=== PATIENT | male | born 1975 | race Caucasian/White ===

== ENCOUNTER 2024-12-31 20:38 | Inpatient (IN) | payer OTHER, BC ==
[2024-12-31 21:51] LABS: Absolute Eosinophils 0.2 K/uL (0-0.5); Absolute Monocytes 0.6 K/uL (0.1-1.3); Absolute Neutrophil 5.2 K/uL (1.8-8.0); Basophils % 0.5 % (0-1.3); Eosinophils % 2.4 % (0-4.4); Hematocrit 30.3 % (39.6-49.0); Lymphocytes % 13.7 % (15.3-44.8); MCH 29.4 pg (27.0-35.0); MCHC 33.1 g/dL (32.0-36.0); MCV 88.9 fL (80-100); MPV 8.5 fL (7.6-11.3); Neutrophils % 74.4 % (41.7-73.7); Nucleated Red Blood Cells % 0.1 % (0-0); Platelets 185 thou/uL (152-406); RBC Red Blood Cell Count 3.41 M/uL (4.33-5.43); Red Cell Distribution Width 14.1 % (12.1-15.2)
[2024-12-31 21:55] LABS: Specific Gravity 1.012 (1.005-1.030); Sqamous Epithelial None Seen /HPF (None Seen); Urine Bacteria None Seen /HPF (<20); Urine Bilirubin NEGATIVE (Negative); Urine Blood 2+ (Negative); Urine Clarity Clear (Clear); Urine Color Colorless (Yellow); Urine Culture Reflex Order NOT NEEDED; Urine Glucose TRACE (Negative); Urine Ketones NEGATIVE (Negative); Urine Micro Reflex YN NO BILL MICROSCOPIC; Urine Nitrite NEGATIVE (Negative); Urine Protein 2+ (Negative); Urine RBC <5 /HPF (None Seen); Urine Urobilinogen Normal (Normal); Urine WBC <5 /HPF (<5); Urine pH 7.5 (5.0-7.0)
[2024-12-31 22:03] LABS: Anion Gap 16.4 mEq/L (5.0-15.0); Potassium 5.4 mEq/L (3.5-5.1)
--- NOTE | 2024-12-31 22:03 | RAD REPORT ---
EXAM: CT brain without contrast HISTORY: TRAUMA COMPARISON: None TECHNIQUE: Multiple contiguous axial images were obtained and a CT of the brain without contrast. Sag ittal and coronal reformats were performed. One or more of the following dose reduction techniques were used: Automated exposure control, adjust ment of the mA and/or kV according to patient size, and/or iterative reconstruction. FINDINGS: No evidence of hydrocephalus, intracranial hemorrhage, or extra-axial fluid collection. Mild brain atrophy. No evidence of midline shift or areas of brain edema. The calvarium is intact. The visualized paranasal sinuses and mastoid air cells are essentially clear . IMPRESSION: No evidence of acute intracranial abnormality. EXAM: CT of the cervical spine without contrast HISTORY: Neck pain, injury TRAUMA TECHNIQUE: Multiple contiguous axial images were obtained in a CT of the cervical spine without contr ast. Sagittal and coronal reformats were performed. FINDINGS: The vertebral bodies demonstrate normal height and alignment. No evidence of acute fracture or subluxation.. Mild lower cervical spondylosis. No prevertebral soft tissue swelling is seen. The posterior facets are well aligned. Normal alignment of the skull base with the cervical spine is seen. Bilateral carotid atherosclerosis. The lung apices are unremarkable. IMPRESSION: No evidence of acute osseous abnormality of the cervical spine.
--- NOTE | 2024-12-31 22:06 | RAD REPORT ---
EXAM: CT CHEST, ABDOMEN AND PELVIS WITHOUT CONTRAST CLINICAL INDICATION: TRAUMA TECHNIQUE: CT chest, abdomen and pelvis was performed without contrast, as per department protocol. A xial, sagittal and coronal reconstructions were obtained. One or more of the following dose reduction techniques were used: Automated exposure control, adjustment of the mA and/or kV according to patient size, and/or iterative reconstruction. Unless otherwise specified, incidental findings do not require dedicated imaging follow-up. Examination is limited by the lack of intravenous contrast material. COMPARISON: No prior exam. FINDINGS: LUNGS: No evidence of airspace or interstitial process. No nodules. PLEURA: No pleural effusion. No pneumothorax. MEDIASTINUM AND LYMPH NODES: No mediastinal mass or fluid collection. Normal size mediastinal, hilar, and axillary lymph nodes. OSSEOUS STRUCTURES AND CHEST WALL: Intact. LIVER: Normal in size and contour. No focal lesion or biliary dilatation. Grossly unremarkable gallbl adder. PANCREAS: No mass, ductal dilation, or khoa-pancreatic fluid. SPLEEN: Normal size. No focal lesion. ADRENALS: Normal; no mass. KIDNEYS: Bilateral enlarged polycystic kidneys. URINARY BLADDER: Normal contour. GASTROINTESTINAL TRACT: No bowel obstruction, free air, significant free fluid or abscess. APPENDIX: Normal appendix. LYMPH NODES: No lymphadenopathy. MUSCULOSKELETAL: No acute or suspicious osseous abnormality. OTHER: Large multiloculated fat-containing ventral hernia. Diastases along the anterior abdominal wal l fascia measures 4.7 cm. IMPRESSION: Polycystic kidney disease. Large fat-containing ventral hernia.
--- NOTE | 2024-12-31 23:12 | ER ---
Nurse's Notes [facility] Name: Les Norris Age: 49 yrs Sex: Male : 1975 Arrival Date: 12/31/2024 Time: 20:38 Bed 14 Private MD: Diagnosis: End stage renal disease;Repeated falls;Hyperkalemia;Uremia Presentation: 12/31 20:53 Chief complaint: Patient states: SLEEP WALKING THE PAST 2 WEEKS AND WHEN HE WAKES UP, dd2 HE FALLS. REPORTS THAT THIS OCCURRED 3X TODAY WHILE NAPPING AND HE FELL AND LANDED ON THE RT SHOULDER, HEARD IT POP. Coronavirus screen: At this time, the client does not indicate any symptoms associated with coronavirus-19. Ebola Screen: No symptoms or risks identified at this time. Initial Sepsis Screen: Does the patient meet any 2 criteria? No. Patient's initial sepsis screen is negative. Does the patient have a suspected source of infection? No. Patient's initial sepsis screen is negative. Risk Assessment: Do you want to hurt yourself or someone else? Patient reports no desire to harm self or others. Onset of symptoms is unknown. 20:53 Method Of Arrival: Ambulatory dd2 20:53 Acuity: THU 3 dd2 Triage Assessment: 21:01 General: Appears in no apparent distress. uncomfortable, Behavior is calm, cooperative, dd2 appropriate for age. Pain: Complains of pain in anterior aspect of right shoulder and posterior aspect of right shoulder Pain does not radiate. Pain currently is 7 out of 10 on a pain scale. Musculoskeletal: Circulation, motion, and sensation intact. Range of motion: intact in all extremities, Reports pain in anterior aspect of right shoulder and posterior aspect of right shoulder. Historical: - Allergies: 21:01 No Known Allergies; dd2 - PMHx: 21:01 DIALYSIS; Hypertensive disorder; Kidney disease; RLS; dd2 - PSHx: 21:01 FISTULA LT ARM; dd2 - Immunization history:: Adult Immunizations up to date. - Infectious Disease History:: Denies. - Social history:: Smoking status: Patient denies any tobacco usage or history of. Screenin:30 [facility] ED Fall Risk Assessment (Adult) History of falling in the last 3 months, rg5 including since admission Yes- fall prone (multiple falls) (3 pts) Confusion or Disorientation Yes (5 pts) Intoxicated or Sedated No (0 pts) Impaired Gait Yes (1 pt) Mobility Assist Device Used Yes (1 pt) Altered Elimination No (0 pt) Score/Fall Risk Level 3 or more points = High Risk Oriented to surroundings, Maintained a safe environment, Educated pt \T\ family on fall prevention, incl call for assistance when getting out of bed, Provided non-skid footwear, Hourly rounding (assess needs \T\ fall precautionary measures) done. Abuse screen: Denies threats or abuse. Nutritional screening: No deficits noted. Tuberculosis screening: No symptoms or risk factors identified. Primary Survey: 22:06 NO uncontrolled hemorrhage observed. A: The client is awake and alert. The airway is rg5 patent. Breathing/Chest: Spontaneous respiratory effort, equal unlabored respirations, breath sounds clear bilaterally, regular pattern, symmetrical chest rise and fall. Circulation: No external hemorrhage present. Regular and strong central pulse, skin warm/dry/normal color. Disability Pupils are equal, round, reactive to light and accommodation. Client is alert. Exposure/Environment: All clothing and personal items were removed. Forensic evidence collection is not deemed to be indicated at this time. Items placed in patient belonging bag. There is no evidence of uncontrolled external bleeding. No obvious injuries are noted at this time. Assessment: 21:30 General: Appears in no apparent distress. Behavior is calm, cooperative, appropriate rg5 for age. Pain: Complains of pain in posterior aspect of right shoulder Pain currently is 6 out of 10 on a pain scale. Quality of pain is described as aching, Pain began 4 hours ago. Neuro: Level of Consciousness is awake, alert, obeys commands, Oriented to person, place, time, situation. Cardiovascular: Denies chest pain, Patient's skin is warm and dry. Respiratory: Airway is patent Trachea midline Respiratory effort is even, unlabored. GI: Abdomen is round. : No signs and/or symptoms were reported regarding the genitourinary system. EENT: No signs and/or symptoms were reported regarding the EENT system. Derm: Skin is intact, Skin is dry, Skin is normal, Skin temperature is warm. Musculoskeletal: Circulation, motion, and sensation intact. Range of motion: intact in right shoulder. Vital Signs: 20:53 BP 170 / 92; Pulse 78; Resp 16; Temp 98.2(O); Pulse Ox 97% on R/A; Weight 158.76 kg dd2 (R); Height 6 ft. 5 in. ; Pain 7/10; 22:20 BP 156 / 94; Pulse 79; Resp 18; Temp 98; rg5 23:40 BP 147 / 88; Pulse 80; Resp 18; Pulse Ox 97% on R/A; Pain 0/10; rg5 20:53 Body Mass Index 41.50 (158.76 kg, 195.58 cm) dd2 20:53 Pain Scale: Adult dd2 23:40 Pain Scale: Adult rg5 [place]rien Coma Score: 21:10 Eye Response: spontaneous(4). Motor Response: obeys commands(6). Verbal Response: rg5 oriented(5). Total: 15. Trauma Score (Adult): 21:10 Eye Response: spontaneous(1); Verbal Response: oriented(1); Motor Response: obeys rg5 commands(2); Systolic BP: > 89 mm Hg(4); Respiratory Rate: 10 to 29 per min(4); [place] Score: 15; Trauma Score: 12 ED Course: 20:42 Patient arrived in ED. im 20:53 Maribeth Leal PA-C is PHCP. sb4 20:53 Ryan Salinas MD is Attending Physician. sb4 21:01 Triage completed. dd2 21:01 Arm band placed on left wrist. dd2 21:04 Constantine Xiao, RN is Primary Nurse. rg5 21:10 Patient maintains SpO2 saturation greater than 95% on room air. rg5 21:30 Patient has correct armband on for positive identification. Placed in gown. Bed in low rg5 position. Call light in reach. Side rails up X 1. Door closed. Noise minimized. Warm blanket given. 21:30 No provider procedures requiring assistance completed. Inserted saline lock: 20 gauge rg5 in right wrist, using aseptic technique. Blood collected. Flushed with 10 mL NS. 21:54 CT Head C Spine In Process Unspecified. EDMS 21:54 CT Chest Abdomen Pelvis W/O Contrast In Process Unspecified. EDMS 22:07 Thermoregulation: warm blanket given to patient. rg5 22:51 Shoulder Right (2 View) XRAY In Process Unspecified. EDMS 23:10 Zenon Colbert MD is Hospitalizing Provider. sb4 23:48 EKG done, by ED staff, reviewed by Maribeth Leal PA-C. oe 01/01 00:38 Provided Education on: needs for admit. rg5 00:38 Patient admitted, IV remains in place. intact, No redness/swelling at site. rg5 Administered Medications: 12/31 23:36 Drug: Kayexalate PO 30 grams PO once Route: PO; rg5 23:48 Follow up: Response: No adverse reaction rg5 Medication: 21:30 VIS not applicable for this client. rg5 Intake: 21:10 PO: 0ml; Total: 0ml. rg5 Output: 21:10 Urine: 150ml (Voided); Total: 150ml. rg5 Outcome: 23:11 Decision to Hospitalize by Provider. sb4 01/01 00:37 Admitted to Med/surg accompanied by tech, via wheelchair, rg5 Condition: stable Instructed on the need for admit, 00:42 Patient left the ED. rg5 Signatures: Dispatcher [employer] EDMS Yobani Canales Sophia, PA-C PA-C sb4 Maria Del Rosario Mcfadden Rommel, RN RN rg5 JOHN MADDEN RN RN dd2 Corrections: (The following items were deleted from the chart) 12/31 21:02 21:01 PSHx: None; dd2 dd2
--- NOTE | 2024-12-31 23:12 | EDPHYS ---
Physician Documentation [facility] Name: Les Norris Age: 49 yrs Sex: Male : 1975 Arrival Date: 12/31/2024 Time: 20:38 Bed 14 Private MD: ED Physician Ryan Salinas HPI: 12/31 22:15 This 49 yrs old Male presents to ER via Ambulatory with complaints of Sleep Walking, sb4 Fall Injury. 22:18 Patient with history of ESRD presents today after several falls while sleepwalking. sb4 Patient states that they moved here from [place] about 1 month ago and he has not been sleeping well since, but has been worse the past 2 nights. States that he has woken up while falling down and injured himself in several different places. States that he is working with a performance improvement specialist in [place] and has had sporadic chair times for dialysis but nothing consistent. States that he has not been dialyzed now and 4 days. Denies any current chest pain or shortness of breath. Is currently complaining of pain in his right shoulder. Historical: - Allergies: 21:01 No Known Allergies; dd2 - PMHx: 21:01 DIALYSIS; Hypertensive disorder; Kidney disease; RLS; dd2 - PSHx: 21:01 FISTULA LT ARM; dd2 - Immunization history:: Adult Immunizations up to date. - Infectious Disease History:: Denies. - Social history:: Smoking status: Patient denies any tobacco usage or history of. ROS: 22:18 Constitutional: Negative for fever, chills, and weight loss, sb4 22:18 MS/extremity: Positive for injury or acute deformity, pain, of the anterior aspect of right shoulder, 22:18 All other systems are negative, Exam: 22:18 Head/Face: Normocephalic, atraumatic. Eyes: Extra-ocular motions intact. Periorbital sb4 areas with no swelling, redness, or edema. ENT: Mucous membranes moist. Cardiovascular: Regular rate and rhythm with a normal S1 and S2. Respiratory: No increased work of breathing, no retractions or nasal flaring. Skin: Warm, dry with normal turgor. Normal color with no rashes, no lesions, and no evidence of cellulitis. 22:18 Constitutional: The patient appears in no acute distress, alert, awake, obese, 22:18 Musculoskeletal/extremity: Joints: the right shoulder displays limited range of motion, pain at rest, painful range of motion, Vital Signs: 20:53 BP 170 / 92; Pulse 78; Resp 16; Temp 98.2(O); Pulse Ox 97% on R/A; Weight 158.76 kg dd2 (R); Height 6 ft. 5 in. ; Pain 7/10; 22:20 BP 156 / 94; Pulse 79; Resp 18; Temp 98; rg5 23:40 BP 147 / 88; Pulse 80; Resp 18; Pulse Ox 97% on R/A; Pain 0/10; rg5 20:53 Body Mass Index 41.50 (158.76 kg, 195.58 cm) dd2 20:53 Pain Scale: Adult dd2 23:40 Pain Scale: Adult rg5 [place] Coma Score: 21:10 Eye Response: spontaneous(4). Motor Response: obeys commands(6). Verbal Response: rg5 oriented(5). Total: 15. Trauma Score (Adult): 21:10 Eye Response: spontaneous(1); Verbal Response: oriented(1); Motor Response: obeys rg5 commands(2); Systolic BP: > 89 mm Hg(4); Respiratory Rate: 10 to 29 per min(4); Brien Score: 15; Trauma Score: 12 MDM: 20:54 Medical Screening Exam initiated sb4 23:10 Data reviewed: vital signs, nurses notes, lab test result(s), EKG, radiologic studies, sb4 I have discussed the patient's presentation/case with the attending Emergency Department Physician; and as a result, I will admit patient. Consideration of Admission/Observation Patient was admitted/placed on observation. Counseling: I had a detailed discussion with the patient and/or guardian regarding the historical points, exam findings, and any diagnostic results supporting the discharge/admit diagnosis, the presence of at least one elevated blood pressure reading (>120/80) during this emergency department visit, lab results, radiology results, the need for further work-up and treatment in the hospital. 12/31 21:30 Order name: CBC with Diff; Complete Time: 21:59 sb4 12/31 21:30 Order name: BMP; Complete Time: 22:03 sb4 12/31 21:30 Order name: UAM; Complete Time: 21:59 sb4 12/31 22:57 Order name: Troponin High Sensitivity sb4 12/31 23:53 Order name: Urinalysis w/ reflexes EDMS 12/31 23:53 Order name: CBC with Automated Diff EDMS 12/31 23:53 Order name: CBC with Automated Diff EDMS 12/31 23:53 Order name: Comprehensive Metabolic Panel EDMS 12/31 23:53 Order name: Comprehensive Metabolic Panel EDMS 12/31 21:30 Order name: CT Head C Spine; Complete Time: 22:04 sb4 12/31 21:30 Order name: CT Chest Abdomen Pelvis W/O Contrast; Complete Time: 22:07 sb4 12/31 22:15 Order name: Shoulder Right (2 View) XRAY sb4 12/31 22:57 Order name: EKG; Complete Time: 22:58 sb4 12/31 21:30 Order name: IV Start; Complete Time: 21:40 sb4 12/31 22:57 Order name: EKG - Nurse/Tech; Complete Time: 23:28 sb4 EC:46 Rate is 84 beats/min. Rhythm is regular, Normal Sinus Rhythm. [place] interval is normal at sb4 180 msec. QRS interval is normal at 112 msec. QT interval is normal at 378 msec. No Q waves. T waves are Normal. No ST changes noted. Clinical impression: Normal ECG. Interpreted by me. Reviewed by me. Administered Medications: 23:36 Drug: Kayexalate PO 30 grams PO once Route: PO; rg5 23:48 Follow up: Response: No adverse reaction rg5 Disposition: 01/01 01:30 Co-signature as Attending Physician, Ryan Salinas MD I agree with the assessment sp4 and plan of care. I reviewed the patient's care provided by the Advanced Practice Provider and agree with the diagnosis and treatment plan. Disposition Summary: 12/31/24 23:11 Hospitalization Ordered Notes: Hospitalization Status: Inpatient Admission sb4 Provider: Zenon Colbert sbJessica Condition: Fair sb4 Problem: new sb4 Symptoms: are unchanged sb4 Bed/Room Type: Standard sb4 Location: Telemetry/MedSurg (Inpatient)(01/01/25 00:06) vk Room Assignment: 415(01/01/25 00:06) vk Diagnosis - End stage renal disease sb4 - Repeated falls sb4 - Hyperkalemia sb4 - Uremia sb4 Forms: - Medication Reconciliation Form sb4 - SBAR form sb4 - Leadership Thank You Letter sb4 Signatures: Dispatcher [employer] EDMaribeth Argueta PA-C PA-C sb4 Ryan Salinas MD MD sp4 Tracie Espinal Rommel RN RN rg5 JOHN MADDEN RN RN dd2 Corrections: (The following items were deleted from the chart) 12/31 21:02 21:01 PSHx: None; dd2 dd2 21:30 21:30 CBC+H.LAB.BRZ ordered. EDMS EDMS 21:30 21:30 BASIC METABOLIC PANEL+C.LAB.BRZ ordered. EDMS EDMS 21:30 21:30 Urinalysis W/Microscopic+U.LAB.BRZ ordered. EDMS EDMS 23:38 23:11 Telemetry/MedSurg (Inpatient) sb4 vk 23:38 23:11 sb4 vk 01/01 00:06 12/31 23:38 BR ER HOLD vk vk 01/01 00:06 12/31 23:38 ERHOLD- vk vk
[2024-12-31] MEDS ORDERED: SOD POLYSTYREN SUL 15 GM/60 ML UCUP ONE (23:27)
[2024-12-31] MEDS ORDERED: ONDANSETRON 4 MG/2 ML VIAL IV PRN (23:49)
[2024-12-31] MEDS ORDERED: ACETAMINOPHEN 325 MG TABLET PO PRN (23:49)
--- NOTE | 2024-12-31 23:49 | P.HP ---
Certification for Inpatient Patient admitted to: Inpatient With expected LOS: >2 Midnights Practitioner: I am a practitioner with admitting privileges, knowledge of patient current condition, hospital course, and medical plan of care. Services: Services provided to patient in accordance with Admission requirements found in Title 42 Section 412.3 of the Code of Federal Regulations Patient History Date of Service: 01/01/25 Reason for admission: Hyperkalemia History of Present Illness: 49 yrs old Male with past medical history of hypertension, hyperlipidemia, ESRD on dialysis, and history of restless leg syndrome and history of sleep walking who was brought to ER with a fall. He also has insomnia. Has not been sleeping well for the last few days and had multiple falls. Last dialysis was 4 days ago. Fever or chills. Denies any chest pain or shortness of breath. No nausea vomiting diarrhea also complaining of some right shoulder pain. Patient was assessed in the ER was admitted for further management of hyperkalemia Allergies No Known Allergies Allergy (Unverified 12/31/24 23:55) Home medications list reviewed: Yes - Past Medical/Surgical History Past Medical History: Reviewed- Non-Contributory -: ESRD on dialysis -: Hypertension -: Restless leg syndrome Past Surgical History: Reviewed- Non-Contributory - Family History Family History: Reviewed- Non-Contributory - Social History Smoking Status: Never smoker Review of Systems 10-point ROS is otherwise unremarkable Physical Examination - Vital Signs Temperature: 98.2 F Blood Pressure: 170/92 Pulse: 78 Respirations: 18 Pulse Ox (%): 94 - Physical Exam General: Alert, In no apparent distress, Oriented x3 HEENT: Atraumatic, Normocephalic Neck: Supple Respiratory: Clear to auscultation bilaterally, Normal air movement Cardiovascular: No edema, Regular rate/rhythm, Normal S1 S2 Capillary refill: <2 Seconds Gastrointestinal: Soft and benign, W/out hepatosplenomegaly Musculoskeletal: No clubbing, No swelling Integumentary: No rashes, No tenderness/swelling Neurological: Normal gait, Normal speech, Normal strength at 5/5 x4 extr, Cranial nerves 3-12 intact Lymphatics: No axilla or inguinal lymphadenopathy - Studies Laboratory Data (last 24 hrs) 12/31/24 12/31/24 21:37 21:37 WBC 7.00 Hgb 10.0 L Hct 30.3 L Plt Count 185 Sodium 137 Potassium 5.4 H BUN 107 H Creatinine 11.30 H Glucose 107 H Assessment and Plan - Plan Hyperkalemia ESRD on dialysis Missed dialysis Antihyperkalemic measures Monitor renal parameters Electrolytes monitor and replace accordingly Nephrology consulted Accelerated hypertension Antihypertensives titrated Continue home medications and titrate as needed Hydralazine as needed Fall Shoulder pain Pain control X-ray noted Restless leg syndrome Insomnia Will give a dose of ambien Will start on pramiprexole in a small dose Anemia of chronic disease Monitor H&H closely No overt bleeding at this time GI/DVT prophylaxis Advanced directive full code Discharge Plan: Home Plan to discharge in: 48 Hours - Advance Directives Does patient have a Living Will: No Does patient have a Durable POA for Healthcare: No - Code Status/Comfort Care Code Status: Full Code Time Spent Managing Pts Care (In Minutes): 49
[2024-12-31] MEDS: SODIUM ZIRCONIUM CYCLOSILICATE 10 GM/PKT PO ONE (23:52)
[2025-01-01] MEDS: ZOLPIDEM TARTRATE 5 MG TABLET PO PRN (01:26)
[2025-01-01] MEDS: MORPHINE 2 MG/ML SYR IV PRN (01:26)
[2025-01-01 01:55] VITALS: BMI 41.5
[2025-01-01] MEDS: HYDRALAZINE HCL 20 MG/ML VIAL IV PRN (04:18)
[2025-01-01] MEDS: HYDROCODONE/APAP 5/325 MG TAB PO PRN (04:18)
--- NOTE | 2025-01-01 05:51 | RAD REPORT ---
CLINICAL HISTORY: Pain. COMPARISON: None. TECHNIQUE: XR SHOULDER 2 OR MORE VIEWS RIGHT 12/31/2024 10:15 PM CDT FINDINGS: There is no fracture. There is widening of the right acromioclavicular joint with separation of 1.4 c m. Soft tissues are unremarkable. IMPRESSION: Right AC joint separation. Electronically signed by: Dustin Brito MD 12/31/2024 11:15 PM CDT RP Due to temporary technical issues with the PACS/[employer] reporting system, reports are being nathan d by the in-house radiologist without review as a courtesy to ensure prompt reporting the interpreting radiologist is fully responsible for the content of the report. Transcribed Date/Time: 01/01/2025 5:51 AM
[2025-01-01 06:36] LABS: Absolute Eosinophils 0.1 K/uL (0-0.5); Absolute Lymphocytes (CBC) 1.4 K/uL (0.7-4.9); Absolute Monocytes 0.7 K/uL (0.1-1.3); Absolute Neutrophil 3.9 K/uL (1.8-8.0); Basophils % 0.3 % (0-1.3); Eosinophils % 2.3 % (0-4.4); Hematocrit 29.2 % (39.6-49.0); Hemoglobin 9.6 g/dL (13.6-17.9); Lymphocytes % 22.6 % (15.3-44.8); MCH 29.2 pg (27.0-35.0); MCV 88.6 fL (80-100); MPV 8.9 fL (7.6-11.3); Monocytes % 11.7 % (3.3-12.3); Neutrophils % 63.1 % (41.7-73.7); Nucleated Red Blood Cells % 0.1 % (0-0); Platelets 161 thou/uL (152-406); RBC Red Blood Cell Count 3.29 M/uL (4.33-5.43)
[2025-01-01 06:59] LABS: Albumin 3.3 g/dL (3.4-5.0); Anion Gap 17.2 mEq/L (5.0-15.0); Bilirubin Total 0.3 mg/dL (0.2-1.0); Globulin 3.3 g/dL (2.3-3.5); Potassium 4.2 mEq/L (3.5-5.1); Protein, Total 6.6 g/dL (6.4-8.2)
[2025-01-01] MEDS: HEPARIN 5000 UNIT/ML 1 ML VIAL SQ SCH (08:49)
[2025-01-01] MEDS ORDERED: HYDRALAZINE HCL 20 MG/ML VIAL IV PRN (10:05)
[2025-01-01] MEDS: HYDRALAZINE HCL 20 MG/ML VIAL IV ONE (10:24)
--- NOTE | 2025-01-01 13:27 | P.PN ---
Date of Service: 01/01/25 Subjective: No acute events overnight Plan for HD/nephrology eval ROS: 10 point ROS as noted above, otherwise negative Physical exam GEN: Alert, oriented, NAD HEENT: Normal conjunctiva, sclera anicteric CV: Regular rate and rhythm, no edema Pulm: Nonlabored respirations on room air ABD: Soft, nontender, nondistended MSK: No joint tenderness Integumentary: No rashes Neuro: Normal speech, normal affect Vitals reviewed Assessment: ESRD on HD with noncompliance/hyperkalemia Multiple falls, right shoulder injury Hypertension Hyperlipidemia Insomnia, restless leg syndrome, sleepwalking Plan: ESRD on HD with noncompliance/hyperkalemia Nephrology consulted From out of town, does not have local Hg set up outpatient yet Potassium improved this morning Multiple falls, right shoulder injury As needed pain medications Follow-up with Ortho outpatient Hypertension Hyperlipidemia Insomnia, restless leg syndrome, sleepwalking Continue home medications CPAP at night DVT PPX: Heparin subcu Code status: Nuclear Medicine Chief Technologist Spent Managing Pts Care (In Minutes): 35
[2025-01-01] MEDS: MIDODRINE HCL 5 MG TABLET PO SCH (13:28)
--- NOTE | 2025-01-01 15:14 | CON ---
Date of Consultation: 01/01/2025 Reason For Consultation: Elevated BUN and creatinine, end-stage renal disease, dialysis dependent. History Of Present Illness: This is a 49-year-old gentleman with significant past medical history of polycystic kidney disease, was progressed to end-stage renal disease, started on peritoneal dialysis back in April 2023, complicated with peritonitis. Had to remove the catheter and the patient was started on [facility] and switched to in-center. The patient apparently moved from [place] to the local area. The patient's last dialysis received Tuesday. The patient denied any nausea, any vomiting. The patient came with shortness of breath. Past Medical History: Includes: 1. End-stage renal disease, used to be on peritoneal dialysis switched to home self-care, then to in-center. 2. Polycystic kidney disease. 3. Hypertension. 4. Obstructive sleep apnea. Past Surgical History: Includes: 1. PD catheter placement and removal. 2. AV fistula creation on the left upper arm. Family History: Positive for hypertension. Social History: Denied smoking. Denied drinking. Denied drugs abuse. Review of Systems: Head and Neck: No red eye. No ear pain. GI: No nausea. No vomiting. : No polyuria. No dysuria. No hematuria. REHANGER: No vaginal discharge. Respiratory: No shortness of breath. Cardiovascular: No chest pain. Endocrine: No polydipsia. Skin: No rash. Physical Examination: Vital Signs: When I saw the patient, blood pressure 161/82, pulse of 89, afebrile. Chest: Crackles, bilateral base. Heart: S1, S2. Systolic murmur. Abdomen: Soft, nontender. Extremities: Trace edema. Neurologic: Alert. No focality. Vascular: Has left arm upper AV fistula, good thrill and bruit. No carotid bruit. Laboratory Data: WBC 6.1, hemoglobin 9.6, sodium 139, potassium 4.2, bicarb 19, BUN 105, creatinine 11.3, GFR of 50. Calcium 8.9. Urinalysis negative for infection. Assessment And Plan: 1. End-stage renal disease, dialysis dependent. I am going to go ahead and resume dialysis given the missed dialysis, multiple days and severe elevation in BUN. We will do short session today. Then, we will do another session tomorrow, then we will convert the patient hopefully to 3 times a week and we will follow up. I discussed with the patient modality option. The patient in preference of home hemodialysis. We will arrange for referral for home hemodialysis with staff assisted and we will follow up. 2. Hypertension. We will utilize the blood pressure for more ultrafiltration. 3. Hyperkalemia, stable, resolved. We will dialyze the patient on low potassium bath. 4. Congestive heart failure with exacerbation. We will optimize the fluid status for the patient with the dialysis. 5. Acidosis. Will be corrected with the dialysis. 6. Secondary hyperparathyroidism. We will send for PTH. Thank you, Dr. Colbert, for allowing us to participate in the care of your patient. time spent examining the patient [id number] reviewing data lab and the radiology placing order discussing the case with the patient discussing the case with the front desk team member including hospitalist and nursing staff more than 75-minute MIKE Voice ID: [id number] Report ID: [id number] SCOTT
[2025-01-01 16:52] LABS: Hepatitis B Core Ab, Total Nonreactive (Nonreactive); Hepatitis B surface AG Interp. Nonreactive (Nonreactive); Hepatitis C Virus Ab Nonreactive (Nonreactive)
[2025-01-01 16:53] LABS: HBsAG Nonreactive Report Report
[2025-01-01] MEDS: GABAPENTIN 400 MG CAP PO SCH (17:00)
[2025-01-01] MEDS: EPOETIN ALFA 10,000 UNIT/ML VIAL IV SCH (17:21)
[2025-01-02 06:23] LABS: Percent Reticulocyte Count 0.93 % (0.4-2.05); RBC Red Blood Cell Count 3.52 M/uL (4.33-5.43)
[2025-01-02 06:57] LABS: Albumin 3.2 g/dL (3.4-5.0); Anion Gap 14.7 mEq/L (5.0-15.0); Ferritin 670.4 ng/mL (26-388); Phosphorus 7.7 mg/dL (2.5-4.9); Potassium 3.7 mEq/L (3.5-5.1); Thyroid Stimulating Hormone 2.04 uIU/mL (0.358-3.740)
[2025-01-02 08:05] VITALS: TEMP 98
[2025-01-02] MEDS: ATORVASTATIN 20 MG TAB PO SCH (08:45)
[2025-01-02] MEDS: FUROSEMIDE 40 MG TABLET PO SCH (08:46)
[2025-01-02] MEDS: CALCITROL 0.25 MCG CAP PO SCH (08:46)
[2025-01-02] MEDS: lisinopriL 5 MG TAB PO SCH (08:46)
[2025-01-02] MEDS: allopurinoL 100 MG TAB PO SCH (08:46)
[2025-01-02 08:48] VITALS: BP 169/95
[2025-01-02] MEDS ORDERED: HOME MED 1 EA UNK (Calcitriol [Rocaltrol] 0.5 MCG Capsule) PO SCH (09:00)
[2025-01-02 09:05] VITALS: O2SAT 96
[2025-01-02] MEDS: SEVELAMER CARBONATE 800 MG TABLET PO SCH (12:00)
--- NOTE | 2025-01-02 12:04 | PN ---
Date of Progress Note: 01/02/2025 Subjective: The patient was admitted to the hospital as he missed his dialysis. The patient had moved to [place]. Physical Examination: Vital Signs: Blood pressure 169/95, pulse of 70. Chest: Clear to auscultation. Heart: S1, S2. Regular. Abdomen: Soft, nontender. Extremities: No edema. Neurologic: Alert. No focality. Laboratory Data: Hemoglobin 9.6. Sodium 141, potassium 3.7, bicarb 24, BUN 70, creatinine 9.4. Calcium 9.1, phosphorus 7.7. Ferritin 670. PTH 1200. Current Medications: The patient is on include Epogen, heparin, hydralazine, lisinopril 5 daily, morphine, allopurinol, Lasix, Ambien, gabapentin. Assessment And Plan: 1. End-stage renal disease secondary to polycystic kidney disease. Missed dialysis. Dialyzed yesterday and today, tolerating very well. Discussed with the patient regarding option of treatment. The patient is interested in home dialysis, but apparently his insurance does not cover. The patient would like to continue to be dialyzed at [facility]. We will follow up with the patient. The patient cleared from the renal standpoint for discharge planning. 2. Anemia of chronic kidney disease. Continue ANGELA. 3. Secondary hyperparathyroidism. We will start Renvela and Sensipar. 4. Polycystic kidney disease, stable. The patient was cleared from the renal standpoint for discharge planning. Time spent exam the patient [id number] reviewing the data lab and the radiology placing order discuss the case with the patient discussing the case with the cps team lead including nursing and hospitalist more than 55 minutes MIKE Voice ID: [id number] Report ID: [id number] MTDD
[2025-01-02 13:08] LABS: Hepatitis B Surface Ab - Quant 183.43 mIU/mL (<8.0)
[2025-01-02 13:21] LABS: Rheumatoid Factor NEG (NEG)
--- NOTE | 2025-01-02 14:49 | P.DS ---
Admission Date: 12/31/24 Discharge Date: 01/02/25 Disposition: ROUTINE DISCHARGE Discharge Condition: GOOD Reason for Admission: Hyperkalemia Brief History of Present Illness: 49 yrs old Male with past medical history of hypertension, hyperlipidemia, ESRD on dialysis, and history of restless leg syndrome and history of sleep walking who was brought to ER with a fall. He also has insomnia. Has not been sleeping well for the last few days and had multiple falls. Last dialysis was 4 days ago. Fever or chills. Denies any chest pain or shortness of breath. No nausea vomiting diarrhea also complaining of some right shoulder pain. Patient was assessed in the ER was admitted for further management of hyperkalemia Hospital Course: Assessment: ESRD on HD with noncompliance/hyperkalemia Multiple falls, right shoulder injury Hypertension Hyperlipidemia Insomnia, restless leg syndrome, sleepwalking Patient was admitted to the hospital after sustaining a fall, he ended up having hyperkalemia and had not gotten his dialysis recently as he has been here from out of town. He received acute inpatient HD 2 times and is working on setting up an outpatient chair in [place] with his previous company. On his imaging he was noted to have an AC joint separation, he will be prescribed as needed pain medication and instructed to follow-up with orthopedics. Recommend no heavy lifting with the affected arm until evaluated by orthopedics. Continue other home medications as previously prescribed Vital Signs/Physical Exam: Temp Pulse Resp BP Pulse Ox 98 F 70 16 169/95 H 100 01/02/25 08:00 01/02/25 08:46 01/02/25 08:00 01/02/25 08:46 01/02/25 08:00 General: Alert, In no apparent distress, Oriented x3 HEENT: Atraumatic, PERRLA, EOMI Neck: Supple, JVD not distended Respiratory: Clear to auscultation bilaterally, Normal air movement Cardiovascular: Regular rate/rhythm, Normal S1 S2 Gastrointestinal: Normal bowel sounds, No tenderness Musculoskeletal: No tenderness Integumentary: No rashes Neurological: Normal speech, Normal affect Laboratory Data at Discharge: WBC 6.10 thou/uL (4.3-10.9) 01/01/25 05:39 Hgb 9.6 g/dL (13.6-17.9) L 01/01/25 05:39 Hct 29.2 % (39.6-49.0) L 01/01/25 05:39 Plt Count 161 thou/uL (152-406) 01/01/25 05:39 Sodium 141 mEq/L (136-145) 01/02/25 05:41 Potassium 3.7 mEq/L (3.5-5.1) 01/02/25 05:41 BUN 70 mg/dL (7-18) H 01/02/25 05:41 Creatinine 9.46 mg/dL (0.70-1.30) H 01/02/25 05:41 Glucose 106 mg/dL (74-106) 01/02/25 05:41 Phosphorus 7.7 mg/dL (2.5-4.9) H 01/02/25 05:41 Total Bilirubin 0.3 mg/dL (0.2-1.0) 01/01/25 05:39 AST 26 U/L (15-37) 01/01/25 05:39 ALT 31 U/L (16-61) 01/01/25 05:39 Alkaline Phosphatase 78 U/L (45-117) 01/01/25 05:39 Home Medications: Allopurinol 100 mg PO DAILY 01/01/25 Atorvastatin Calcium 20 mg PO DAILY 01/01/25 Calcitriol [Rocaltrol] 0.5 mcg PO DAILY 01/01/25 Furosemide [Lasix] 40 mg PO DAILY 01/01/25 Gabapentin 400 mg PO QID 01/01/25 Midodrine HCl 5 mg PO TID 01/01/25 Pramipexole Di-HCl [Mirapex ER] 5 mg PO BEDTIME 01/01/25 Semaglutide [Ozempic] 0.25 mg SQ Q7D 01/01/25 lisinopriL [Lisinopril] 5 mg PO DAILY 01/01/25 traMADol HCL [Ultram*] 50 mg PO Q8H PRN #15 tab 01/02/25 New Medications: traMADol HCL [Ultram*] 50 mg PO Q8H PRN #15 tab PRN Reason: Pain Physician Discharge Instructions: Patient was admitted to the hospital after sustaining a fall, he ended up having hyperkalemia and had not gotten his dialysis recently as he has been here from out of town. He received acute inpatient HD 2 times and is working on setting up an outpatient chair in [place] with his previous company. On his imaging he was noted to have an AC joint separation, he will be prescribed as needed pain medication and instructed to follow-up with orthopedics. Recommend no heavy lifting with the affected arm until evaluated by orthopedics. Continue other home medications as previously prescribed Diet: Renal Activity: Ad xiomara Followup: Jessee Espinal MD [ACTIVE - CAN ADMIT] - 1 Week NONE,NONE [Primary Care Provider] - 1-2 Weeks Jason Barry MD [ACTIVE - CAN ADMIT] - 1-2 Weeks Time spent managing pt's care (in minutes): 46
--- NOTE | 2025-01-03 08:46 | EKG ---
Test Date: 2024-12-31 Test Time: 23:43:18 Circular Saw Filer: POLLY MEASUREMENT RESULTS: Intervals: Rate: 84 [place]: 180 QRSD: 112 QT: 378 QTc: 446 [place]: P: 54 [place]: 180 QRS: 53 T: 52 INTERPRETIVE STATEMENTS: Normal sinus rhythm Normal ECG No previous ECG available for comparison Electronically Signed On 01-03-25 08:39:06 CDT by Hardy Solano
[2025-01-03] MEDS ORDERED: lisinopriL 20 MG TAB PO SCH (09:00)
[2025-01-03] MEDS ORDERED: CINACALCET HCL 30 MG TAB PO SCH (09:00)
[2025-01-06 06:07] LABS: Abnormal Protein Band 1 REPORT; Albumin, (SPE) 3.7 g/dL (3.8-4.8); Alpha-1-Globulins 0.3 g/dL (0.2-0.3); Alpha-2-Globulins 0.8 g/dL (0.5-0.9); Beta 1 Globulin 0.3 g/dL (0.4-0.6); Gamma Globulins 0.8 g/dL (0.8-1.7); INTERPRETATION REPORT; Total Protein 6.1 g/dL (6.1-8.1)
[2025-01-06 13:03] LABS: 1,25 Dihydroxy Vitamin D3 <8 pg/mL; Vitamin D 1,25-Dihydroxy Total <8 pg/mL (18-72); Vitamin D,1,25-OH2, D2 <8 pg/mL
== END 2025-01-02 15:38 | disposition home or self-care (01) | DRG 640 ==
LOC: ER 20:38 → ERHOLD 23:49 → 4TH 01-01 00:38
PROVIDERS: ADMIT Family Medicine; ATTEND Hospitalist
PROC: 5A1D70Z Performance of Urinary Filtration, Intermittent, Less than 6 Hours Per Day (ICD-10-PCS; 2025-01-01)
PROC: 5A09357 Assistance with Respiratory Ventilation, Less than 24 Consecutive Hours, Continuous Positive Airway Pressure (ICD-10-PCS; principal; 2025-01-02)
PROC: 5A1D70Z Performance of Urinary Filtration, Intermittent, Less than 6 Hours Per Day (ICD-10-PCS; 2025-01-02)
DX: E87.5 Hyperkalemia (principal); N18.6 End stage renal disease; N25.81 Secondary hyperparathyroidism of renal origin; Q61.3 Polycystic kidney, unspecified; Z99.2 Dependence on renal dialysis; G25.81 Restless legs syndrome; D63.1 Anemia in chronic kidney disease; E78.5 Hyperlipidemia, unspecified; M25.511 Pain in right shoulder; Z91.158 Patient's noncompliance with renal dialysis for other reason; G47.00 Insomnia, unspecified; R29.6 Repeated falls; E87.20 Acidosis, unspecified; G47.33 Obstructive sleep apnea (adult) (pediatric); F51.3 Sleepwalking [somnambulism]
CPT/HCPCS: 36415; 70450; 71250; 72125; 74176; 80048; 80053; 80069; 81001; 82652; 82728; 82947; 83540; 83970; 84165; 84443; 84484; 85025; 85044; 86430; 86704; 86706; 86803; 87340; 90935; 93005; 94760; 99285; J0360; J1644; J2270